=== PATIENT | female | born 1965 | race Caucasian/White ===

== ENCOUNTER 2017-11-03 20:39 | Emergency (ER) | payer MEDICAID ==
[2017-11-03 21:27] LABS: BASO # 0.1 K/uL (0.0-0.2); BASO % 0.8 % (0.0-2.0); EOS # 0.6 K/uL (0.0-0.7); EOS % 8.3 % (0.0-4.0); HEMATOCRIT 38.2 % (34.0-47.0); LYMPH # 3.1 K/uL (1.0-4.3); MEAN CELL VOLUME 92.9 fL (81.0-99.0); MEAN CORPUSCULAR HEMOGLOBIN 32.5 pg (27.0-31.0); MEAN PLATELET VOLUME 9.6 fL (7.2-11.7); MONO # 0.6 K/uL (0.0-0.8); MONO % 9.2 % (0.0-10.0); RED CELL DISTRIBUTION WIDTH 14.3 % (11.5-14.5); WHITE BLOOD COUNT 6.8 K/uL (4.8-10.8)
--- NOTE | 2017-11-03 21:34 | C.PDOC ---
History Of Present Illness Patient presents to ED c/o productive cough with greenish sputum for the past 3 days, fever/chills since yesterday, and left sided chest pain today. Chest pain is pressure like, intermittent, nonpleuritic, sometimes radiates down the left arm. She has this type of pain previously, was instructed to follow up with cardiology by PMD but has not yet made appointment. PMHx of DM, HTN, hypothyroidism. She denies known cardiac history. Time Seen by Provider: 11/03/17 20:50 Chief Complaint (Nursing): Shortness Of Breath History Per: Patient History/Exam Limitations: no limitations Onset/Duration Of Symptoms: Days (3) Current Symptoms Are (Timing): Better Severity: Mild Quality: Tightness, Pressure, "Pain" Associated Symptoms: Other (cough, mild SOB) Exacerbating Factors: denies: Turning, Movement, Deep Breathing Past Medical History Reviewed: Historical Data, Nursing Documentation, Vital Signs Vital Signs: Last Vital Signs Temp 98 F 11/03/17 23:16 Pulse 70 11/03/17 23:16 Resp 12 11/03/17 23:16 BP 134/74 11/03/17 23:16 Pulse Ox 97 11/03/17 23:16 - Medical History PMH: Diabetes, HTN, Hypothyroidism Surgical History: Cholecystectomy Family History: States: No Known Family Hx - Social History Hx Tobacco Use: No Hx Alcohol Use: No Hx Substance Use: No - Immunization History Hx Tetanus Toxoid Vaccination: No Hx Influenza Vaccination: Yes Hx Pneumococcal Vaccination: No Review Of Systems Except As Marked, All Systems Reviewed And Found Negative. Constitutional: Positive for: Fever, Chills Cardiovascular: Positive for: Chest Pain. Negative for: Palpitations Respiratory: Positive for: Cough, Shortness of Breath, Sputum. Negative for: SOB with Excertion, Pleuritic Pain, Wheezing Gastrointestinal: Negative for: Nausea, Vomiting, Abdominal Pain, Diarrhea Genitourinary: Negative for: Dysuria, Hematuria Skin: Negative for: Rash Physical Exam - Physical Exam Appears: Well, Non-toxic, No Acute Distress, Other (speaking in full sentences) Skin: Normal Color, Warm, Dry Oral Mucosa: Moist Chest: Symmetrical, No Tenderness Cardiovascular: Rhythm Regular Respiratory: Normal Breath Sounds, No Rales, No Rhonchi, No Wheezing Gastrointestinal/Abdominal: Normal Exam, Bowel Sounds, Soft, No Tenderness Extremity: Normal ROM, No Pedal Edema, No Calf Tenderness Pulses: Left Dorsalis Pedis: Normal, Right Dorsalis Pedis: Normal Neurological/Psych: Oriented x3 ED Course And Treatment - Laboratory Results Result Diagrams: 11/03/17 21:17 11/03/17 21:17 ECG: Interpreted By Me, Viewed By Me (NSR 67 bpm, normal axis, no acute ST/T wave changes) ECG Interpretation: Normal O2 Sat by Pulse Oximetry: 98 (RA) Pulse Ox Interpretation: Normal - Radiology CXR: Interpreted by Me, Viewed By Me CXR Interpretation: Yes: No Acute Disease. No: Infiltrates Progress Note: Blood work, CXR, EKG ordered and reviewed. Patient given PO ASA. Reevaluation Time: 23:00 Reassessment Condition: Improved (Patient reassessed, denies current chest pain. Explained to patient that I would like to keep her in hospital for further testing since her symptoms are concerning for cardiac chest pain, and she has history of diabetes and HTN. However patient states she does not want to stay in the hospital. Patient has signed out against my medical advice, and understands that by doing so she risks worsening of her current condition, SD/ ACS, and possibly even . Patient given Rxs for daily ASA and increased dose of L-thyroxine. She was instructed to follow up with cardiology within 1 week, and understands she should return to ED immediately if symptoms worsen.) Disposition Counseled Patient/Family Regarding: Studies Performed, Diagnosis, Need For Followup, Rx Given - Disposition Referrals: Pam Lewis MD [Medical Doctor] - Sandip James MD [Staff Provider] - Disposition: AGAINST MEDICAL ADVICE Disposition Time: 23:00 Condition: STABLE Additional Instructions: FOLLOW UP WITH CARDIOLOGY WITHIN 1 WEEK!! TAKE ASPIRIN DAILY, AND USE NEW DOSE OF YOUR THYROID MEDICATION RETURN TO EMERGENCY ROOM IMMEDIATELY IF SYMPTOMS WORSEN YOU ARE SIGNING OUT AGAINST MY MEDICAL ADVICE, AND RISK WORSENING OF YOUR CURRENT CONDITION, HEART ATACK, AND POSSIBLY EVEN ! SEGUIMIENTO CON CARDIOLOGA DENTRO DE 1 SEMANA !! TOME ASPIRINA DIARIAMENTE Y USE NUEVA DOSIS DE PIZANO MEDICACIN TIROIDES REGRESE AL JIMBO DE EMERGENCIA INMEDIATAMENTE SI LOS [place] FUNCIONAN EST FIRMANDO CONTRA SD CONSEJO MDICO Y EL RIESGO EMPEORANDO PIZANO CONDICIN ACTUAL, EL PANDEO DEL CORAZN, Y POSIBLEMENTE INCLUSO LA MUERTE! Prescriptions: Aspirin 81 mg PO DAILY #30 tab.chew Levothyroxine [Synthroid] 0.15 mg PO DAILY #30 tab Instructions: Chest Pain (ED), Hypothyroidism (ED), Against Medical Advice (ED) Forms: [employer] (Singaporean), (AMA) Informed Refusal Print Language: MONTSERRATIAN - Clinical Impression Clinical Impression: Chest pain, Hypothyroidism, Left against medical advice
[2017-11-03 21:35] LABS: BILIRUBIN,TOTAL 0.8 mg/dL (0.2-1.3); CALCIUM 8.6 mg/dl (8.6-10.4); GFR AFRICAN-AMERICAN > 60; GLUCOSE,RANDOM 126 mg/dL (65-105)
[2017-11-03 21:38] LABS: ALKALINE PHOSPHATASE 156 U/L (38-126); ALT/SGPT 63 U/L (9-52); AST/SGOT 68 U/L (14-36); BLOOD UREA NITROGEN 12 mg/dL (7-17); CARBON DIOXIDE 27 mmol/L (22-30); CHLORIDE 98 mmol/L (98-107); POTASSIUM 3.9 mmol/L (3.6-5.2); SODIUM 132 mmol/L (132-148); TOTAL PROTEIN 8.5 g/dL (6.3-8.3)
[2017-11-03 23:18] VITALS: BP 134/74; PULSE 70; RESP 12; TEMP 98
[2017-11-04 02:57] VITALS: O2SAT 98
--- NOTE | 2017-11-04 08:38 | RAD ---
HISTORY: prodductive cough, chills COMPARISON: 12/26/2016 TECHNIQUE: Chest PA and lateral FINDINGS: LUNGS: No active pulmonary disease. PLEURA: No significant pleural effusion identified. No pneumothorax apparent. CARDIOVASCULAR: Normal. OSSEOUS STRUCTURES: No significant abnormalities. VISUALIZED UPPER ABDOMEN: Normal. OTHER FINDINGS: None. IMPRESSION: No active disease.
== END 2017-11-03 23:16 | disposition left against medical advice (07) ==
LOC: C.ER 20:39
DX: E03.9 Hypothyroidism, unspecified (principal); R07.9 Chest pain, unspecified; E11.9 Type 2 diabetes mellitus without complications; I10 Essential (primary) hypertension

== ENCOUNTER 2018-05-13 22:45 | Emergency (ER) | payer MEDICAID ==
[2018-05-13 23:00] VITALS: RESP 20
[2018-05-13] MEDS ORDERED: Naproxen 550 mg Tab PO STA (23:26)
--- NOTE | 2018-05-14 | C.PDOC ---
History Of Present Illness 52 year old female with PMhx of DM presents to the ED c/o chest pain that has been on and off. Patient reports that usually pain only last less than a minute. Patient reports today pain lasted longer and was associated with left arm tingling and SOB. Patient denies headache, blurry vision, nausea, vomit, diarrhea, rash. Chief Complaint (Nursing): Chest Pain History Per: Patient History/Exam Limitations: no limitations Onset/Duration Of Symptoms: Days Current Symptoms Are (Timing): Still Present Number Of Syncopal Episodes: 1 Activity At Onset Of Symptoms: Lying Associated Symptoms Preceding Syncopal Episode: No Predromal Symptoms (Sudden Onset) Seizure Or Post-ictal Symptoms: None Fall Associated With With Symptoms: No Recent travel outside of the [place]: No Additional History Per: Patient Past Medical History Reviewed: Historical Data, Nursing Documentation, Vital Signs Vital Signs: Last Vital Signs Temp 97.7 F 05/14/18 01:08 Pulse 80 05/14/18 01:08 Resp 20 05/14/18 01:08 BP 103/61 05/14/18 01:08 Pulse Ox 99 05/14/18 02:07 - Medical History PMH: Diabetes, HTN, Hypothyroidism Surgical History: Cholecystectomy Family History: States: Unknown Family Hx - Social History Hx Tobacco Use: No Hx Alcohol Use: No Hx Substance Use: No - Immunization History Hx Tetanus Toxoid Vaccination: No Hx Influenza Vaccination: Yes Hx Pneumococcal Vaccination: No Review Of Systems Constitutional: Negative for: Fever, Chills Cardiovascular: Positive for: Chest Pain, Palpitations Respiratory: Positive for: Shortness of Breath. Negative for: Cough Gastrointestinal: Negative for: Nausea, Vomiting, Abdominal Pain Musculoskeletal: Negative for: Arm Pain Skin: Negative for: Rash Neurological: Negative for: Weakness, Numbness Physical Exam - Physical Exam Appears: Non-toxic, No Acute Distress Skin: Normal Color, Warm, Dry Head: Atraumatic, Normacephalic Eye(s): bilateral: Normal Inspection Oral Mucosa: Moist Neck: Normal ROM, No Midline Cervical Tenderness, Supple, Other (reproducible pain with palpation on left trapezius muscle raditaing towards her left arm.) Chest: Symmetrical Cardiovascular: Rhythm Regular Respiratory: Normal Breath Sounds, No Rales, No Rhonchi, No Wheezing Gastrointestinal/Abdominal: Soft, No Tenderness, No Guarding, No Rebound Extremity: Normal ROM, No Tenderness, No Swelling Neurological/Psych: Oriented x3, Normal Speech Gait: Steady ED Course And Treatment - Laboratory Results Result Diagrams: 05/14/18 00:17 05/14/18 00:17 ECG: Interpreted By Me, Viewed By Me Interpretation Of ECG: frequent PACs and bigeminal pattern of QRS Rate From EC (BPM) O2 Sat by Pulse Oximetry: 99 (ON RA) Pulse Ox Interpretation: Normal Medical Decision Making Medical Decision Making: Impression: cervical nerve pinched Plan: * Labs * CXR * Naproxen 550 mg PO Disposition - Disposition Referrals: [facility] [Outside] Disposition: HOME/ ROUTINE Disposition Time: 02:34 Condition: FAIR Prescriptions: Naproxen [Naprosyn] 500 mg PO BID #20 tablet Instructions: Costochondritis, Radiculopathy (DC) Forms: [employer] (Russian) Print Language: TANZANIAN - Clinical Impression Clinical Impression: Chest wall pain - Scribe Statement The provider has reviewed the documentation as recorded by the Scribe Bryce Queen All medical record entries made by the Scribe were at my direction and personally dictated by me. I have reviewed the chart and agree that the record accurately reflects my personal performance of the history, physical exam, medical decision making, and the department course for this patient. I have also personally directed, reviewed, and agree with the discharge instructions and disposition.
[2018-05-14] MEDS ORDERED: Naproxen 550 mg Tab PO ONE (00:06)
[2018-05-14 00:22] LABS: BASO % 0.5 % (0.0-2.0); EOS # 0.3 K/uL (0.0-0.7); EOS % 5.6 % (0.0-4.0); HEMOGLOBIN 12.6 g/dL (11.0-16.0); LYMPH # 2.7 K/uL (1.0-4.3); LYMPH % 44.7 % (20.0-40.0); MEAN CELL VOLUME 94.1 fL (81.0-99.0); MEAN CORPUSCULAR HEMOGLOBIN 32.9 pg (27.0-31.0); MEAN PLATELET VOLUME 9.6 fL (7.2-11.7); MONO # 0.6 K/uL (0.0-0.8); NEUT # 2.4 K/uL (1.8-7.0); NEUT % 39.2 % (50.0-75.0); NRBC % 0.1 % (0.0-2.0); RBC 3.82 Mil/uL (3.80-5.20); RED CELL DISTRIBUTION WIDTH 14.7 % (11.5-14.5)
[2018-05-14 00:32] LABS: ALB/GLOB RATIO 1.3 (1.0-2.1); ALBUMIN 4.3 g/dL (3.5-5.0); ALT/SGPT 65 U/L (9-52); AST/SGOT 53 U/L (14-36); BLOOD UREA NITROGEN 13 mg/dL (7-17); CALCIUM 9.2 mg/dl (8.6-10.4); GFR AFRICAN-AMERICAN > 60; GFR NON-AFRICAN AMERICAN > 60
[2018-05-14 01:09] VITALS: BP 103/61; PULSE 80; TEMP 97.7
[2018-05-14 02:07] VITALS: O2SAT 99
--- NOTE | 2018-05-14 08:27 | RAD ---
PROCEDURE: CHEST RADIOGRAPH, 1 VIEW HISTORY: chest pain COMPARISON: Comparison chest 11/03/2017 FINDINGS: LUNGS: Clear. PLEURA: No pneumothorax or pleural fluid seen. CARDIOVASCULAR: Normal. OSSEOUS STRUCTURES: No significant abnormalities. VISUALIZED UPPER ABDOMEN: Normal. OTHER FINDINGS: None. IMPRESSION: No active disease.
== END 2018-05-14 01:16 | disposition home or self-care (01) ==
LOC: C.ER 22:45
DX: R07.89 Other chest pain (principal); I10 Essential (primary) hypertension; E11.9 Type 2 diabetes mellitus without complications

== ENCOUNTER 2018-12-30 14:25 | Emergency (ER) | payer MEDICAID ==
[2018-12-30 14:41] VITALS: BP 142/85; RESP 16; TEMP 98
--- NOTE | 2018-12-30 15:54 | C.PDOC ---
History Of Present Illness 53 y/o female pt with hx of DM and thyroid disease presents to the ER c/o back pain, b/l knee pain and right shoulder pain. Pt reports she fell at work on 12/08, but did not go to see a doctor. Pt notes she's been having pain since. Pt also reports she is unable to lift her right arm all the way up. Time Seen by Provider: 12/30/18 15:25 Chief Complaint (Nursing): Back Pain History Per: Patient History/Exam Limitations: no limitations Onset/Duration Of Symptoms: Days Current Symptoms Are (Timing): Still Present Past Medical History Reviewed: Historical Data, Nursing Documentation, Vital Signs Vital Signs: Last Vital Signs Temp 98 F 12/30/18 14:32 Pulse 78 12/30/18 14:32 Resp 16 12/30/18 14:32 BP 142/85 12/30/18 14:32 Pulse Ox 98 12/30/18 14:32 - Medical History PMH: Diabetes, HTN, Hypothyroidism Surgical History: Cholecystectomy Family History: States: Unknown Family Hx - Social History Hx Tobacco Use: No Hx Alcohol Use: No Hx Substance Use: No - Immunization History Hx Tetanus Toxoid Vaccination: No Hx Influenza Vaccination: Yes Hx Pneumococcal Vaccination: No Review Of Systems Except As Marked, All Systems Reviewed And Found Negative. Constitutional: Positive for: Other (decreased ROM in right shoulder ) Musculoskeletal: Positive for: Shoulder Pain (right ), Back Pain, Other (b/l knee pain ) Physical Exam - Physical Exam Appears: Non-toxic, No Acute Distress Skin: Warm, Dry Head: Normacephalic Eye(s): bilateral: Normal Inspection Neck: Normal ROM, No Midline Cervical Tenderness, No Paracervical Tenderness, Supple Chest: Symmetrical, No Deformity Cardiovascular: Rhythm Regular Respiratory: Normal Breath Sounds, No Rales, No Rhonchi, No Wheezing Gastrointestinal/Abdominal: Soft, No Tenderness Back: Other (midline tenderness on lumbar region ) Extremity: No Normal ROM (decreased ROM on left knee ), Tenderness (b/l knees ), No Pedal Edema, No Calf Tenderness, Capillary Refill (<2 sec), No Deformity, No Swelling, Other (pt is unable to flex knee but able to extend knee ) Pulses: Left Dorsalis Pedis: Normal, Right Dorsalis Pedis: Normal Neurological/Psych: Oriented x3, Normal Speech, Normal Cognition, Normal Motor, Normal Sensation ED Course And Treatment O2 Sat by Pulse Oximetry: 98 (RA) Pulse Ox Interpretation: Normal Medical Decision Making Medical Decision Making: Impression: 53 y/o female pt with lower back pain r/o fx b/l knee pain r/o fx and right shoulder pain r/o fx and dislocation Plans: -- b/l knee xr -- ls spine xr -- right shoulder xr -- toradol Disposition - Disposition Referrals: [facility] [Outside] [facility] [Outside] [facility] [Outside] Disposition: HOME/ ROUTINE Disposition Time: 18:11 Condition: GOOD Prescriptions: Cyclobenzaprine [Cyclobenzaprine HCl] 10 mg PO Q8 #15 tab Ibuprofen [Motrin] 600 mg PO Q6 #20 tab Instructions: Contusion (DC) Forms: [employer] (Scottish) - Clinical Impression Clinical Impression: Contusion - Scribe Statement The provider has reviewed the documentation as recorded by the Scribe Yary Gregory Provider Attestation: All medical record entries made by the Scribe were at my direction and personally dictated by me. I have reviewed the chart and agree that the record accurately reflects my personal performance of the history, physical exam, medical decision making, and the department course for this patient. I have also personally directed, reviewed, and agree with the discharge instructions and disposition.
[2018-12-30 18:12] VITALS: PULSE 70
--- NOTE | 2018-12-31 12:58 | RAD ---
Date of service: 12/30/2018 PROCEDURE: Radiographs of the Lumbar Spine. HISTORY: r/o fx COMPARISON: No prior. FINDINGS: BONES: Normal alignment. No listhesis. No fracture. DISC SPACES: Unremarkable. OTHER FINDINGS: None. IMPRESSION: Unremarkable radiographs of the lumbar spine.
--- NOTE | 2018-12-31 12:59 | RAD ---
Date of service: 12/30/2018 PROCEDURE: Bilateral Knee Radiographs. HISTORY: r/o Fx COMPARISON: None. FINDINGS: BONES: Right Knee: Normal. No fracture. Left Knee: Normal. No fracture. JOINTS: Right Knee: Normal. No osteoarthritis. Left knee: Normal. No osteoarthritis. SOFT TISSUES: Right Knee: Normal. Left Knee: Normal. JOINT EFFUSION: Right Knee: None. Left Knee: None. OTHER FINDINGS: None. IMPRESSION: Normal radiographs of the knees.
--- NOTE | 2018-12-31 13:04 | RAD ---
Date of service: 12/30/2018 PROCEDURE: Radiographs of the Right Shoulder HISTORY: r/o fx COMPARISON: No prior. FINDINGS: BONES: Normal. No fracture. JOINTS: Normal glenohumeral articulation. Mild acromioclavicular degenerative arthritis peer SOFT TISSUES: Normal. OTHER FINDINGS: None. IMPRESSION: No acute fracture. Acromioclavicular degenerative arthritis.
[2018-12-31 15:09] VITALS: O2SAT 98
== END 2018-12-30 18:11 | disposition home or self-care (01) ==
LOC: C.ER 14:25
DX: T14.8XXA Other injury of unspecified body region, initial encounter (principal); W19.XXXA Unspecified fall, initial encounter; Y92.89 Other specified places as the place of occurrence of the external cause; Y99.0 Civilian activity done for income or pay
CPT/HCPCS: 72100; 73030; 73562; 96372; 99283; J1885